=== PATIENT | female | born 1980 | race Caucasian/White ===

== ENCOUNTER 2018-03-29 16:31 | Emergency (ER) | payer BC, OTHER ==
[2018-03-29 17:04] VITALS: TEMP 98; BMI 25.6
--- NOTE | 2018-03-29 17:05 | PDOC ---
History of Present Illness - General Stated Complaint: SYNCOPE Time Seen by Provider: 03/29/18 16:52 - History of Present Illness Initial Comments: 03/29/18 17:07 Jyoti Ewing is a 37yo previously healthy woman who presents today after a syncopal episode at home. She reports that she came home from work this afternoon and felt extremely fatigued and dizzy. She believes that she fainted but does not remember the event; she does not know if she fell or hit her head but says that she has no pain or headache. However, she initially stated that her right face felt somewhat numb, then later stated it felt warm. Later on she also noted that her right arm was subjectively cold. She was noted to have rhythmic horizontal shaking of her head and reported that this just started after she fell today. Ms Ewing denies any SOB, chest pain, sudden headache , diaphoresis, nausea, recent vomiting or diarrhea, abnormal PO intake, or recent illness. She was not engaged in physical activity when she fell, did not just stand up or change position, recent illness or fever, and had not recently voided or had a bowel movement. Ms Ewing reports that she has a new baby at home, born via 3 months ago, as well as 2 other children. Since that time, she states that she has likely only averaged approximately 3 hours of sleep per night due to not being ablew to fall asleep. She additionally endorses more frequent right-sided headaches though does report that she has had these for many years. Her only other complaint is frequent heartburn and nausea that started during her recent . She does note significant stress recently with her children, difficulty with her , and recently restarting work last week. Past History - Past Medical History Allergies/Adverse Reactions: Allergies Allergy/AdvReac Type Severity Reaction Status Date / Time Penicillins Allergy Unknown Verified 03/29/18 17:04 shrimp Allergy Severe Swelling Uncoded 03/29/18 17:04 Home Medications: Ambulatory Orders NK [No Known Home Medication] 02/27/16 Anemia: No Asthma: No Cancer: No Cardiac Disorders: No CVA: No COPD: No CHF: No Dementia: No Diabetes: No GI Disorders: Yes (REFLUX) Disorders: Yes (left atrophic kidney) HTN: No Hypercholesterolemia: No Liver Disease: No Seizures: No Thyroid Disease: No - Surgical History Abdominal Surgery: No Appendectomy: No Cardiac Surgery: No Cholecystectomy: No Lung Surgery: No Neurologic Surgery: No Orthopedic Surgery: No - Reproductive History (#): 2 Para: 2 Cervical CA: No Dysfunctional Uterine Bleeding: No Ectopic : No Endometrial CA: No Polycystic Ovaries: No Tubal Ligation: No - Suicide/Smoking/Psychosocial Hx Smoking Status: No Smoking History: Never smoked Number of Cigarettes Smoked Daily: 0 Hx Alcohol Use: No Drug/Substance Use Hx: No Substance Use Type: None Hx Substance Use Treatment: No Review of Systems - Review of Systems Comments:: 03/29/18 17:05 General: No fevers, no chills, no weight or appetite change, no malaise. +Lack of sleep HEENT: No changes in vision, no changes in hearing, no congestion, no sore throat CV: No chest pain, no palpitations, no LE edema Pulm: No SOB, no cough, no wheezing GI: +frequent heartburn and nausea. No vomiting, no change in bowel habits, no melena : No frequency, no urgency, no dysuria Musc: No back pain, no joint swelling, no recent injury Skin: No rash, no lesions, no erythema Endo: No excessive thirst, no heat/cold intolerance Heme: No unusual bruising or bleeding, no swollen glands Neuro: See HPI Vasc: No claudication Psych: +significantly increased stress, insomnia *Physical Exam - Physical Exam Comments: 03/29/18 18:25 General: No acute distress, comfortable in bed HEENT: PERRL, EOMI, MMM, voice normal, normal neck ROM, no LAD. No cervical spine tenderness. No abrasions, lacerations or ecchymosis noted. Cards: RRR, no murmur appreciated Pulm: Comfortable on room air, clear to auscultation bilaterally Abd/back: Soft, nontender, nondistended. No spinal tenderness. : No CVA tenderness Ext: Atraumatic. No LE edema. ROM intact. Strength 5/5 and equal bilaterally Vasc: Extremities WWP. Palpable radial and pedal pulses bilaterally Neuro: A&Ox3, CN grossly intact, normal speech, motor grossly intact and symmetric. Abnormal sensation to light tough on right face. Horizontal rhythmic shaking of head but not extremities. Psych: Mood appropriate to situation ED Treatment Course - LABORATORY CBC & Chemistry Diagram: 03/29/18 17:35 03/29/18 17:35 Medical Decision Making - Medical Decision Making 03/29/18 18:27 Jyoti Ewing is an otherwise healthy 37yo woman who presents today following a syncopal event at home. She reports recent fatigue, possible increased frequency of migraine headaches, and significant stress at home. Causes of syncope include cardiac, neurologic, anemia, hypovolemia/ othrthostatics, PE - EKG obtained on arrival NSR, no cardiac history, no chest pain. Troponin pending to confirm, but cardiac pathology unlikely given lack of symptoms in an otherwise young, healthy woman - Similarly neurologic causes of syncopy are unlikely; she has no current headache, no focal weakness, no CN deficit as she is currently denying facial numbness. - CT head ordered to rule out trauma - No SOB, recent trauma, recent surgery, recent travel, calf pain or tenderness to suggest PE - No recorded hypotension suggesting orthostatics, but - CBC, CMP, coags, trop, UA, test pending 03/29/18 18:38 - Now reporting that her right arm is subjectively cold; no coolness noted on exam. strength still 5/5 and equal. - Reports tubal ligation following recent ; can send to CT when ready 03/29/18 20:21 - CT completed. Reviewed imaging, no acute pathology noted. Radiology read pending. - If CT normal, plan to discharge home with primary care follow up to address insomnia and for long-term care. Seen and discussed with Dr Ceron. 03/29/18 20:41 - CT head negative for acute pathology. - Results discussed with patient and her family - Will discharge home Seen and discussed with Dr Ceron. *DC/Admit/Observation/Transfer Diagnosis at time of Disposition: Syncope Qualifiers: Syncope type: unspecified Qualified Code(s): R55 - Syncope and collapse - Discharge Dispostion Disposition: HOME Condition at time of disposition: Good - Referrals Referrals: Simon Mraley MD [Staff Physician] - - Patient Instructions Printed Discharge Instructions: DI for Syncope in Adults (Fainting), Tips for Reducing Stress in Your Life, DI for Insomnia Additional Instructions: Discharge Instructions: - You were seen in the ED after fainting at home - You had blood tests, heart tests, and a CT scan of your head to make sure you did not have any serious cause that resulted in your fainting - You should set up an appointment with a primary care doctor for follow up. You have been referred to the [facility] clinic and should make an appointment for within the next 1-2 weeks - If you have continued insomnia, consider trying [id number] sleep aids. Use as directed on the package. Tips to reduce insomnia are included in your discharge packet. - Post Discharge Activity Forms/Work/School Notes: Back to Work
[2018-03-29 17:43] LABS: BASO % 0.4 % (0-2.0); EOS % 0.1 % (0-4.5); HEMATOCRIT 37.5 % (32.4-45.2); HEMOGLOBIN 12.2 GM/dL (10.7-15.3); LYMPH % 18.2 % (8-40); MCH 26.3 pg (25.7-33.7); MCHC 32.5 g/dl (32.0-36.0); MEAN CELL VOLUME 80.8 fl (80-96); MEAN PLT VOLUME 6.7 fl (7.5-11.1); MONO % 4.2 % (3.8-10.2); NEUT % 77.1 % (42.8-82.8); PLATELET COUNT 310 K/MM3 (134-434); RBC 4.64 M/mm3 (3.60-5.2); RDW 14.8 % (11.6-15.6); WHITE BLOOD COUNT 7.9 K/mm3 (4.0-10.0)
[2018-03-29 17:44] LABS: URINE APPEARANCE CLEAR; URINE BILIRUBIN NEGATIVE (<2.0 mg/dL); URINE COLOR COLORLESS; URINE GLUCOSE (UA) NEGATIVE (NEGATIVE); URINE KETONE TRACE (NEGATIVE); URINE LEUK ESTERASE NEGATIVE (NEGATIVE); URINE NITRITE NEGATIVE (NEGATIVE); URINE PROTEIN NEGATIVE (NEGATIVE); URINE UROBILINOGEN NEGATIVE mg/dL (0.2-1.0)
[2018-03-29] MEDS ORDERED: ACETAMINOPHEN 1000 MG/100 ML VIAL (NON FORMULARY) IVPB ONE (18:16)
[2018-03-29] MEDS ORDERED: SODIUM CHLORIDE 1,000 ML IV STA (18:16)
--- NOTE | 2018-03-29 18:18 | PDOC ---
Attending Attestation - Resident Resident Name: Yasmin Banrard - ED Attending Attestation I have performed the following: I have examined & evaluated the patient, The case was reviewed & discussed with the resident, I agree w/resident's findings & plan, Exceptions are as noted - HPI HPI: 03/29/18 18:48 "The patient is a 37 year old female, with a significant past medical history of Left atrophic kidney and GERD, who presents to the ED complaining of a syncopal episode while at home today. Pt states that she was in her bedroom when she began to feel very lightheaded. She states that she lost consciousness and the next thing she knows she was on the ground. Pt denies tongue biting or incontinence. Pt denies ever having CP/SOB/palpitations. Pt admits to sleeping very little recently because she has a new 3 mo baby. She states she worked today and was exhausted when she got home. Pt currently denies any symptoms other than "warmth" to her R face. Denies any weakness/numbness in any extremity. The patient denies chest pain, shortness of breath, headache, fever, chills, nausea, vomiting, diarrhea or constipation. Denies dysuria, frequency, urgency and hematuria. Allergies: Penicillin, shrimp Past surgical history: Social History: No alcohol, tobacco or drug use reported " - Physicial Exam PE: 03/29/18 18:18 "GENERAL: Awake, alert, and fully oriented, in no acute distress. HEAD: No signs of trauma EYES: PERRLA, EOMI, sclera anicteric, conjunctiva clear ENT: Auricles normal inspection, hearing grossly normal, nares patent, oropharynx clear without exudates. Moist mucosa NECK: Nontender, no stepoffs, Normal ROM, supple, no lymphadenopathy, JVD, or masses LUNGS: Breath sounds equal, clear to auscultation bilaterally. No wheezes, and no crackles HEART: Regular rate and rhythm, normal S1 and S2, no murmurs, rubs or gallops ABDOMEN: Soft, nontender, normoactive bowel sounds. No guarding, no rebound. No masses EXTREMITIES: Normal range of motion, no edema. No clubbing or cyanosis. No cords, erythema, or tenderness NEUROLOGICAL: Diminished sensation to R face, Cranial nerves II through XII otherwise intact. 5/5 strength and sensation in all extremities, Normal speech, normal gait, normal cerebellar function SKIN: Warm, Dry, normal turgor, no rashes or lesions noted. " - Medical Decision Making 03/29/18 18:14 37 F with syncopal episode. EKG with no evidence of arrhythmia. Pt with no CP/ SOB to suggest PE. Afebrile and HD stable at this time, with no evidence of infectious process. Pt with subjective numbness to R face but otherwise neurologically non-focal. No headache to suggest SAH. - Labs - CT head
[2018-03-29 18:19] LABS: ALBUMIN 3.8 g/dl (3.4-5.0); ANION GAP 6 (8-16); BILIRUBIN,TOTAL 0.3 mg/dL (0.2-1.0); BLOOD UREA NITROGEN 8 mg/dL (7-18); CALCIUM 8.3 mg/dL (8.5-10.1); CHLORIDE 114 mmol/L (98-107); CO2 26 mmol/L (21-32); CREATININE 0.7 mg/dL (0.55-1.02); GLUCOSE,RANDOM 91 mg/dL (74-106); POTASSIUM 3.9 mmol/L (3.5-5.1); SGOT/AST 10 U/L (15-37); SGPT/ALT 19 U/L (12-78); SODIUM 146 mmol/L (136-145); TOT PROT 6.6 g/dl (6.4-8.2)
[2018-03-29 18:21] LABS: ALK PHOS 84 U/L (45-117); INR 1.15 (0.82-1.09)
[2018-03-29] MEDS ORDERED: ACETAMINOPHEN INJECTION 100 ML IVPB ONE (18:32)
[2018-03-29 19:31] VITALS: BP 144/87; PULSE 82
--- NOTE | 2018-03-30 14:22 | EKG ---
Test Reason : Blood Pressure : / mmHG Vent. Rate : 074 BPM Atrial Rate : 074 BPM P-R Int : 124 ms QRS Dur : 090 ms QT Int : 420 ms P-R-T Axes : 055 025 056 degrees QTc Int : 466 ms NORMAL SINUS RHYTHM POSSIBLE LEFT ATRIAL ENLARGEMENT BORDERLINE ECG WHEN COMPARED WITH ECG OF 04-MAR-2010 09:43, NO SIGNIFICANT CHANGE WAS FOUND Confirmed by JAVIER SINCLAIR MD ([id number]) on 03/30/2018 2:21:42 PM Referred By: Confirmed By:JAVIER SINCLAIR MD
== END 2018-03-29 21:09 | disposition home or self-care (01) ==
LOC: JER 16:31
PROC: 3E033NZ Introduction of Analgesics, Hypnotics, Sedatives into Peripheral Vein, Percutaneous Approach (ICD-10-PCS; principal; 2018-03-29)
DX: R55 Syncope and collapse (principal); K21.9 Gastro-esophageal reflux disease without esophagitis
CPT/HCPCS: 36415; 70450-TC; 71045-TC-FY; 80053; 81003; 82550; 84484; 84703; 85025; 85610; 86850; 86870; 86900; 86901; 86902; 93005; 93010; 99285-25; J0131; J7030